=== PATIENT | male | born 1965 | race Caucasian/White ===

== ENCOUNTER → 2020-02-22 | Outpatient (CLI) | payer OTHER | LOC: RAD 13:18 | DX: M25.572 Pain in left ankle and joints of left foot (principal); Z98.890 Other specified postprocedural states ==

== ENCOUNTER 2024-09-07 08:00 | Outpatient (RCR) | payer OTHER | END 2024-09-18 | disposition still patient (30) | LOC: PT 08:00 | DX: M94.0 Chondrocostal junction syndrome [Tietze] (principal) ==